=== PATIENT | female | born 1950 | race Caucasian/White ===

== ENCOUNTER → 2018-03-04 12:24 | Outpatient (CLI) | payer MEDICARE, OTHER, SELFPAY ==
--- NOTE | 2018-03-04 | DI.MG.S_ITS ---
BILATERAL DIGITAL SCREENING MAMMOGRAM 3D/2D WITH CAD: 03/04/2018 CLINICAL: Routine screening. Family history of breast cancer. Comparison is made to exams dated: 02/04/2015 mammogram, 06/18/2013 mammogram, and 06/16/2012 mammogram - [facility]. The tissue of both breasts is extremely dense, which lowers the sensitivity of mammography. Current study was also evaluated with a Computer Aided Detection (CAD) system. No significant masses, calcifications, or other findings are seen in either breast. There has been no significant interval change. IMPRESSION: NEGATIVE There is no mammographic evidence of malignancy. A 1 year screening mammogram is recommended. This exam was interpreted at Station ID: [id number]. NOTE: For mammograms, a report in lay terms will be sent to the patient. Approximately 15% of breast malignancies will not be visualized mammographically. In the management of a palpable breast mass, a negative mammogram must not discourage biopsy of a clinically suspicious lesion. Electronically Signed By: Bong finley/lizeth:03/04/2018 15:36:01 letter sent: Normal Exam ACR BI-RADS Category 1: Negative [id number]
== END ==
PROVIDERS: PCP Nurse Practitioner Family; Visit Provider Nurse Practitioner Family
DX: Z12.31 Encounter for screening mammogram for malignant neoplasm of breast (principal); Z80.3 Family history of malignant neoplasm of breast
CPT/HCPCS: 77063; 77067

== ENCOUNTER → 2020-10-28 10:11 | Outpatient (CLI) | payer MEDICARE, OTHER, SELFPAY ==
--- NOTE | 2020-10-28 10:14 | DI.MG.S_ITS ---
BILATERAL DIGITAL SCREENING MAMMOGRAM 3D/2D WITH CAD: 10/28/2020 CLINICAL: Routine screening. Family history of breast cancer. Comparison is made to exams dated: 03/04/2018 mammogram, 02/04/2015 mammogram, and 06/18/2013 mammogram - [facility]. The tissue of both breasts is extremely dense, which lowers the sensitivity of mammography. Current study was also evaluated with a Computer Aided Detection (CAD) system. No significant masses, calcifications, or other findings are seen in either breast. There has been no significant interval change. IMPRESSION: NEGATIVE There is no mammographic evidence of malignancy. A 1 year screening mammogram is recommended. This exam was interpreted at Station ID: [id number]. NOTE: For mammograms, a report in lay terms will be sent to the patient. Approximately 15% of breast malignancies will not be visualized mammographically. In the management of a palpable breast mass, a negative mammogram must not discourage biopsy of a clinically suspicious lesion. Electronically Signed By: Wilmer Raines acr/penrad:10/28/2020 12:32:43 letter sent: Normal Exam ACR BI-RADS Category 1: Negative [id number]
== END ==
PROVIDERS: PCP Internal Medicine; Referring Provider Internal Medicine; Visit Provider Internal Medicine
DX: Z12.31 Encounter for screening mammogram for malignant neoplasm of breast (principal); Z80.3 Family history of malignant neoplasm of breast
CPT/HCPCS: 77063; 77067

== ENCOUNTER → 2021-12-06 10:13 | Outpatient (CLI) | payer MEDICARE, OTHER, SELFPAY | PROVIDERS: PCP Internal Medicine; Referring Provider Internal Medicine; Visit Provider Internal Medicine | DX: M85.851 Other specified disorders of bone density and structure, right thigh (principal); Z13.820 Encounter for screening for osteoporosis; M85.852 Other specified disorders of bone density and structure, left thigh; Z78.0 Asymptomatic menopausal state | CPT/HCPCS: 77080 ==

== ENCOUNTER → 2022-07-25 09:53 | Outpatient (CLI) | payer MEDICARE, OTHER, SELFPAY ==
--- NOTE | 2022-07-25 | DI.RAD.S_ITS ---
PROCEDURE: XR KNEE RT 3V INDICATIONS: right knee pain TECHNIQUE: 3 views of the knee were acquired. COMPARISON: None. FINDINGS: Bones: No fractures or dislocations. No suspicious bony lesions. Moderate knee joint degeneration, most severe in the medial femorotibial compartment. Soft tissues: Small joint effusion. No suspicious soft tissue calcifications. IMPRESSION: Moderate osteoarthritis. Small knee joint effusion. Dictated by: Marilin Haider M.D. on 07/26/2022 at 9:38 Approved by: Marilin Haider M.D. on 07/26/2022 at 9:39
== END ==
PROVIDERS: PCP Internal Medicine; Referring Provider Internal Medicine; Visit Provider Internal Medicine
DX: M25.561 Pain in right knee (principal); M17.11 Unilateral primary osteoarthritis, right knee; M25.461 Effusion, right knee
CPT/HCPCS: 73562

== ENCOUNTER → 2022-12-24 10:56 | Outpatient (CLI) | payer MEDICARE, OTHER, SELFPAY ==
--- NOTE | 2022-12-24 10:57 | DI.RAD.S_ITS ---
PROCEDURE: XR KNEE LT 3V INDICATIONS: Left knee pain TECHNIQUE: 3 views of the knee were acquired. COMPARISON: [facility], CR, XR KNEE RT 3V, 07/25/2022, 10:01. FINDINGS: Bones: No fractures or dislocations. No suspicious bony lesions. Mild medial compartmental joint space narrowing Soft tissues: No joint effusion. No suspicious soft tissue calcifications. IMPRESSION: Mild medial compartmental joint space narrowing Approved by: Socrates Moreno M.D. on 12/24/2022 at 18:18
== END ==
PROVIDERS: PCP Internal Medicine; Referring Provider Anesthesiology; Visit Provider Anesthesiology
DX: M25.562 Pain in left knee (principal); M17.11 Unilateral primary osteoarthritis, right knee; M25.561 Pain in right knee; G89.29 Other chronic pain
CPT/HCPCS: 73562; 99214

== ENCOUNTER → 2023-12-21 09:42 | Outpatient (CLI) | payer MEDICARE, OTHER, SELFPAY | PROVIDERS: PCP Internal Medicine; Visit Provider Registered Nurse | DX: R30.0 Dysuria (principal) | CPT/HCPCS: 87077; 87086; 87186 ==

== ENCOUNTER → 2024-04-27 07:57 | Outpatient (CLI) | payer MEDICARE, OTHER, SELFPAY ==
--- NOTE | 2024-04-27 | DI.MG.S_ITS ---
BILATERAL DIGITAL SCREENING MAMMOGRAM 3D/2D WITH CAD: 04/27/2024 CLINICAL: Routine screening. Family history of breast cancer. Comparison is made to exams dated: 10/28/2020 mammogram, 03/04/2018 mammogram, and 02/04/2015 mammogram - [facility]. The breasts are extremely dense, which lowers the sensitivity of mammography (category d />75% glandular tissue). Current study was also evaluated with a Computer Aided Detection (CAD) system. No significant masses, calcifications, or other findings are seen in either breast. There has been no significant interval change. IMPRESSION: NEGATIVE There is no mammographic evidence of malignancy. A 1 year screening mammogram is recommended. Based on the Tyrer Cuzick model (a risk assessment model) the patient's lifetime risk is 8.5% and her 10 year risk is 8.5%. According to the ACR, ACS, and NCCN guidelines, an annual breast MRI exam along with mammogram is recommended if the patient's lifetime risk is 20% or greater. This exam was interpreted at Station ID: [id number]. NOTE: For mammograms, a report in lay terms will be sent to the patient. Approximately 15% of breast malignancies will not be visualized mammographically. In the management of a palpable breast mass, a negative mammogram must not discourage biopsy of a clinically suspicious lesion. Electronically Signed By: Jesus benito/lizeth:04/27/2024 17:08:17 letter sent: Normal Exam ACR BI-RADS Category 1: Negative
== END ==
LOC: MAMMO 07:58
PROVIDERS: PCP Internal Medicine; Referring Provider Internal Medicine; Visit Provider Internal Medicine
DX: Z12.31 Encounter for screening mammogram for malignant neoplasm of breast (principal); Z80.3 Family history of malignant neoplasm of breast; R92.343 Mammographic extreme density, bilateral breasts
CPT/HCPCS: 77063; 77067

== ENCOUNTER → 2024-08-28 10:38 | Outpatient (CLI) | payer MEDICARE, OTHER, SELFPAY ==
--- NOTE | 2024-08-28 10:41 | DI.RAD.S_ITS ---
PROCEDURE: XR DEXA AXIAL SKELETON INDICATIONS: POSTMENOPAUSAL COMPARISON: [facility], , XR DEXA AXIAL SKELETON, 12/06/2021, 10:44. [facility], CR, DEXA AXIAL SKELETON, 01/04/2016, 10:31. FINDINGS: Lumbar Spine: Bone mineral density 0.945 g/cm2, T score -0.9, no significant change. Left Femoral Neck: Bone mineral density 0.620 g/cm2, T score -2.1. Left Hip: Bone mineral density 0.736 g/cm2, T score -1.7, decreased by 2.9%. Fracture Risk Calculation (when applicable): 10-year fracture risk of a major osteoporotic fracture 12 percent and of a hip fracture 3.4 percent. (T score greater or equal to -1.0 to: NORMAL) (T score from -1.1 to -2.4: OSTEOPENIA) (T score less than or equal to -2.5: OSTEOPOROSIS) IMPRESSION: Low bone mineral density (osteopenia) by WHO classification. Follow-up guidelines as follows: Osteoporosis: Consider a repeat DEXA and Vertebral Fracture Assessment (VFA) exam in 2 years or sooner if medically necessary, to reassess this patient's status. Osteopenia: Consider a repeat DEXA in 2-3 years to reassess this patient's status, or if there is a new clinical indication. Normal: Consider a repeat DEXA in 5 years or sooner, or if there is a new clinical indication. All treatment decisions require clinical judgment and consideration of individual patient factors, including patient preferences, comorbidities, previous drug use, risk factors not captured in the FRAX model (e.g., frailty, falls, vitamin D deficiency, increased bone turnover, interval significant decline in bone density ) and possible under- or over-estimation of fracture risk by FRAX. In addition, the NOF Guide recommends that FDA-approved medical therapies be considered in postmenopausal women and men age >= 50 years with a: * Hip or vertebral (clinical or morphometric) fracture * T-score of <=-2.5 at the spine or hip * Ten-year fracture probability by FRAX of >= 3% for hip fracture or >=20% for major osteoporotic fracture. Dictated by: Yvan Joshi M.D. on 08/30/2024 at 21:40 Approved by: Yvan Joshi M.D. on 08/30/2024 at 21:41
== END ==
PROVIDERS: PCP Family Medicine; Referring Provider Family Medicine; Visit Provider Family Medicine
DX: M85.89 Other specified disorders of bone density and structure, multiple sites (principal); Z78.0 Asymptomatic menopausal state
CPT/HCPCS: 77080